=== PATIENT | male | born 1955 | race Caucasian/White ===

== ENCOUNTER 2020-03-07 08:34 | Outpatient (REF) | payer OTHER, SELFPAY | END 2020-03-07 08:35 | disposition home or self-care (01) | LOC: HO.LAB 08:34 | PROVIDERS: PCP Internal Medicine; Visit Provider Internal Medicine | DX: Z20.828 Contact with and (suspected) exposure to other viral communicable diseases (principal) | CPT/HCPCS: C9803; U0003 ==

== ENCOUNTER 2021-02-11 07:51 | Emergency (ER) | payer OTHER, SELFPAY ==
--- NOTE | ~2021-02-11 | XR_ITS ---
EXAMINATION: XR RIBS, RIGHT CLINICAL INFORMATION: Fall with right-sided chest pain COMPARISON: None TECHNIQUE: PA chest and 3 views of the right ribs FINDINGS: There are multiple old left-sided rib fractures. No pneumothorax or pleural effusion. No acute parenchymal disease. Heart normal size. No evidence of pulmonary edema. There is a sclerotic lesion seen about the right humeral neck without bony destruction. There is a nondisplaced fracture seen involving the anterolateral aspect of the right eighth rib. XR/XR ribs RT min 3V w CXR1V IMPRESSION: Nondisplaced acute fracture right eighth rib. No pneumothorax or pleural effusion.
[2021-02-11 07:52] VITALS: BP 194/65; PULSE 67; RESP 20; TEMP 36.7; O2SAT 100; BMI 28.7
--- NOTE | 2021-02-11 08:05 | ED.FALL ---
HPI - Fall General Chief Complaint: General Medical Stated Complaint: fall - rib pain Time Seen by Provider: 02/11/21 07:56 Source: patient Mode of arrival: ambulatory Limitations: no limitations History of Present Illness HPI Narrative: 66-year-old male who presents emergency department for evaluation of right chest wall injury from a fall. Patient states that he was at a supermarket on Tuesday (4 days prior to evaluation) when he slipped and fell. He states he landed on his right chest. He states that he was able to get up but shortly after the fall he developed right-sided chest pain. He states that the pain is been constant. He points to his right lateral chest wall when asked to localize the pain. The pain is a sharp pain which is worse with movement and worse with breathing. He states the pain is 9/10 at its worst. He did not take any pain medications for this pain. He states that he does have some mild shortness of breath and mild dyspnea on exertion. He states that he has a nonproductive cough. He denied fever, chills, nausea, vomiting, abdominal pain, neck pain, back pain or extremity pain. Related Data Allergies Allergy/AdvReac Type Severity Reaction Status Date / Time No Known Allergies Allergy Unverified 12/13/19 17:25 [No Known Allergies*] Review of Systems Review of Systems: Yes all other systems are reviewed and are negative [facility] Past Medical History [facility] Narrative: Past medical history: Hypertension, hyperlipidemia. Past surgical history: Patient has had orthopedic injuries with repair in the past. Social history: He denies tobacco use. The patient drinks 2-3 beers per day. Denies drug use. Medical History High cholesterol HTN (hypertension) Social History Social History Advance Directives: No Physical Exam Vital Signs: Vital Signs: Last Vital Signs Temp 98.3 F 02/11/21 08:39 Pulse 64 02/11/21 08:39 Resp 16 02/11/21 08:39 BP 168/69 H 02/11/21 08:39 Pulse Ox 95 02/11/21 08:39 Body Mass Index 28.7 Const: General: cooperative and no acute distress Orientation/consciousness: oriented to person and oriented to place Limitations: no limitations HENMT: Head: Yes normal to inspection, Yes normocephalic and Yes atraumatic Ears: external ears normal General nose exam: Normal external nose present Face and sinus: Yes normal facial exam Mouth: Normal oral and palatal mucosa present Throat: Yes posterior oropharynx normal Eyes: General: appearance normal, both eyes and all related structures Pupils: Equal, round and reactive pupils present Neck: Neck: Yes normal visual inspection, Yes no lymphadenopathy, Yes trachea midline and Yes supple Chest: Chest palpation & inspection: normal inspection of the chest and tenderness rib (Right lateral chest wall tenderness) Resp: Effort & Inspection: normal respiratory effort and able to speak in complete sentences Auscultation: clear to auscultation bilaterally Cardio: Rate: regular rate Rhythm: regular rhythm Heart sounds: S1 normal heart sound present, S2 normal heart sound present and no murmurs GI: Inspection: Yes normal to inspection Palpation (GI): Soft to palpation, nontender and no guarding Auscultation: normal bowel sounds : General: Yes no CVA tenderness Back/Spine/Pelvis: Back: no CVA tenderness Skin: General skin exam: no rashes or lesions noted Neuro: General: oriented to person and oriented to place Cranial nerves: Yes CN's II-XII intact bilaterally and Yes Equal, round and reactive pupils present Cognition (Neuro): normal cognition Motor exam (neuro): 5/5 motor strength present throughout Extrem: General: Yes normal to inspection Psych: Appearance: grossly normal Speech and movement: Normal speech and movement present Affect: normal affect Attitude: cooperative Thought process: Normal thought process present Thought content: Normal thought content present Course Course Course Narrative: 66-year-old male who presents emergency department for evaluation of right-sided chest pain which occurred after he fell 4 days prior. The patient's pain is constant, worse with breathing worse with movement. Vital signs revealed an elevated blood pressure of 194/65 otherwise unremarkable. Physical examination did reveal right lateral chest wall tenderness. Differential includes but is not limited to chest wall contusion, rib contusion, rib fracture, pneumonia, pneumothorax. Right-sided rib x-rays with one-view chest were ordered. Patient's pain was treated with ibuprofen 600 mg orally. 0953: The patient's chest x-ray revealed a nondisplaced acute fracture of the right 8th rib. I did review this with the patient. I created a rib belt using in 8 in Adams wrap. I wrapped this around the patient's chest to cover the right 8th rib. The patient felt significantly better after being wrapped with the Adams wrap. Patient was advised to take Tylenol ibuprofen for pain. He was given printed and verbal instructions and discharged home. Patient will need a work note for 1 week. Procedures Procedure Narrative Procedure Narrative: Adams wrap rib belt: The patient's chest was wrapped in his 6 in Adams wrap by me, the Adams wrap was placed over the 8th rib and secured with velcro. The patient did get relief of his pain with this rib belt. Discharge Plan Discharge Clinical Impression: Fall Qualifiers: Encounter type: initial encounter Qualified Code(s): W19.XXXA - Unspecified fall, initial encounter Closed rib fracture Qualifiers: Encounter type: initial encounter Rib fracture type: single rib Laterality: right Qualified Code(s): S22.31XA - Fracture of one rib, right side, initial encounter for closed fracture Patient Disposition: Home, Self-Care Instructions: Rib Fracture (ED) Additional Instructions: Your x-rays revealed that you have a nondisplaced fracture/broken bone of the right 8th rib. Wear the Adams wrap rib belt as needed for pain over the next 1-2 weeks. You can also buy a Velcro rib belt at any pharmacy. Take ibuprofen 200 mg pills, 3 pills every 6 hours as needed for pain. Take Tylenol (acetaminophen) 500 mg pills, 2 pills every 4 to 6 hours as needed for pain. Follow-up with your doctor in 2 days. Please return to the emergency department if your symptoms get worse or if you develop any symptoms that are concerning to you. Stand Alone Forms: Work/School Release
[2021-02-11 08:26] VITALS: BP 181/69; PULSE 71; RESP 18; TEMP 36.6; O2SAT 97; BMI 28.7
[2021-02-11 08:39] VITALS: BP 168/69; PULSE 64; RESP 16; TEMP 36.8; O2SAT 95
[2021-02-11] MEDS: Ibuprofen 600 MG TABLET PO (08:55)
== END 2021-02-11 10:04 | disposition home or self-care (01) ==
PROVIDERS: Emergency Provider Emergency Medicine Emergency Medical Services; PCP Internal Medicine
DX: S22.31XA Fracture of one rib, right side, initial encounter for closed fracture (principal); I10 Essential (primary) hypertension; W01.0XXA Fall on same level from slipping, tripping and stumbling without subsequent striking against object, initial encounter; Y93.9 Activity, unspecified; Y92.512 Supermarket, store or market as the place of occurrence of the external cause; Y99.9 Unspecified external cause status
CPT/HCPCS: 71101; 99283; 99284

== ENCOUNTER 2024-05-07 21:16 | Emergency (ER) | payer MEDICARE, SELFPAY ==
[2024-05-07 21:21] VITALS: BP 139/85; PULSE 76; RESP 16; TEMP 36.3; O2SAT 96; BMI 25.0
--- NOTE | 2024-05-07 21:23 | ECG_ITS ---
Test Reason : PALPITATIONS Blood Pressure : */* mmHG Vent. Rate : 70 BPM Atrial Rate : 70 BPM P-R Int : 136 ms QRS Dur : 88 ms QT Int : 356 ms P-R-T Axes : 44 -9 32 degrees QTcB Int : 384 ms Normal sinus rhythm Septal infarct , age undetermined Abnormal ECG No previous ECGs available Referred By: Generic ED Physician Electronically Signed By: ROBERT CHAVES MD
[2024-05-07 22:33] LABS: Imm Gran Abs Auto 0.01 X10*3/uL (0.00-0.03); Imm Gran Pct Auto 0.2 % (0.0-0.4); Mean Corpuscular HGB Conc 33.9 g/dl (31.0-36.0); Mean Corpuscular Hemoglobin 27.6 pg (27.0-33.0); PLT CLUMP 1; SCAN SMEAR FLAG 1
[2024-05-07 22:35] LABS: Basophils Percent Auto 0.7 % (0-2); Eosinophils Absolute Auto 0.2 X10*3/uL (0.0-0.4); Eosinophils Percent Auto 3.9 % (0-4); Hematocrit 49.3 % (42.0-52.0); Hemoglobin 16.7 g/dl (14.0-18.0); Lymphocytes Percent Auto 34.8 % (20-40); Mean Corpuscular Volume 81.4 fL (80.0-98.0); Mean Platelet Volume 11.3 fL (9.4-12.4); Monocytes Absolute Auto 0.8 X10*3/uL (0.1-1.2); Monocytes Percent Auto 13.6 % (2-11); Neutrophils Absolute Auto 2.8 x10*3/uL (2.0-8.3); Neutrophils Percent Auto 46.8 % (45-73); Red Blood Count 6.06 X10*6/uL (4.60-5.80); Red Cell Distribution Width 15.4 % (11.0-16.0)
[2024-05-07 22:47] LABS: Alanine Aminotransferase 63 U/L (0-40); Albumin Level 3.8 g/dL (3.5-5.0); Alkaline Phosphatase 268 U/L (39-117); Anion Gap 11 (12-20); Aspartate Amino Transferase 109 U/L (5-37); Bilirubin Total 1.6 mg/dL (0.0-1.0); Blood Urea Nitrogen 10 mg/dL (9-16); Calcium 9.8 mg/dL (8.4-10.2); Carbon Dioxide 23 mmol/L (22-29); Chloride 109 mmol/L (96-108); Creatinine Clr Calc Pharmacy 93.1; Estimated Glomerular Filt Rate > 60; Glucose Random 117 mg/dL (60-115); Potassium 4.1 mmol/L (3.3-5.1); Sodium 139 mmol/L (135-145); Total Protein 8.5 g/dL (6.5-8.0)
[2024-05-07 22:54] LABS: Troponin-I High Sensitivity < 2.7 ng/L (<3.5-35.0)
[2024-05-07 22:59] LABS: MANUAL DIFF FLAG NO; Platelet Count 108 X10*3/uL (160-400); White Blood Count 5.9 X10*3/uL (4.8-10.8)
--- OUTSIDE RECORDS SUMMARY | 2024-05-08 03:42 | XMS_ITS | Clinical Summary ---
Author Organization [address] Address [address] [place] [id number] Phone Care Team Providers Care Payroll Machine Operator Name Role Phone Alejo Allan MD Primary Care Provider [phone] Allergies No known active allergies Medications simvastatin (ZOCOR) 10 mg tablet Take 0.5 tablets (5 mg total) by mouth at bedtime. 12/05/2023 Active lisinopriL (PRINIVIL,ZESTR IL) 20 mg tablet Take 1 tablet (20 mg total) by mouth 1 (one) time each day. 12/05/2023 Active Active Problems Problem Noted Date Diagnosed Date Fatty liver disease, nonalcoholic 09/02/2021 Elevated ferritin level 03/17/2021 Benign prostatic hyperplasia without lower urinary tract symptoms 03/16/2018 Skin lesion 03/16/2018 Overview (03/04/2024): Lump on back cyst vs lipoma Cervical radiculitis 10/31/2017 Cervical spondylosis with radiculopathy 11/01/19 18 Hyperlipidemia 09/16/2016 Elevated LFTs 10/23/2015 Essential hypertension 02/10/2015 Immunizations Name Administration Dates Next Due Moderna SARS-CoV-2 COVID-19, mRNA, LNP-S, preservative free 04/12/2021,08/11/2020,07/13/2020 Pneumococcal conjugate 20 va lent (Prevnar 20, PCV 20) 2mo and older 04/28/2023 Tdap Tetanus diptheria acell ular pertussis (Boostrix; Adacel) 7yo and older 03/11/2016 Surgical History Surgery Date Site/Laterality Comments OTHER SURGICAL HISTORY 03/28/2000 PROCEDURE: MT OPEN TX HUMERAL SUPRACONDYLAR FRACTURE W/O XTN; COMMENT: plate and screws; fractured L humerus and both of legs COLONOSCOPY 12/26/2014 PROCEDURE: HISTORICAL COLONOSCOPY; COMMENT: Polyps x 3, diverticulosis Medical History Medical History Date Comments Essential hypertension 02/10/2015 DX:Essent ial hypertension Hyperlipemia 2020 DX:Hyperlipemia; COMMENT: Patient on a statin Elevated ferritin level 03/17/2021 DX:[place] carole ferritin level Family History Medical History Relation Name Comments Liver disease Brother No Known Problems Father Asthma Mother Diabetes Mother Stomach cancer Sister 1 Breast cancer Sister 2 Relation Name Status Comments Brother Father Mother Sister 1 Sister 2 Social History Tobacco Use Types Packs/Day Years Used Date Smoking Tobacco: Former Cigarettes 0.3 40.6 1 04/13/1971 - 09/17/2012 Smokeless Tobacco: Never Alcohol Use Standard Drinks/Week Comments Yes 0 (1 standard drink = 0.6 oz pur e alcohol) Sex and Gender Information Value Date Recorded Sex Assigned at Not on file Legal Sex Male 8:51 AM EST Gender Identity Not on file Sexual Orientation Not on file Obstetrics History Last Filed Vital Signs Vital Sign Reading Time Taken Comments Blood Pressure 134/68 12/05/2023 8:01 AM EDT Pulse 65 12/05/2023 8:01 AM EDT Temperature - - Respiratory Rate - - Oxygen Saturation - - Inhaled Oxygen Concentration - - Weight 73.5 kg (162 lb) 12/05/2023 8:01 AM EDT Height 165.1 cm (5' 5 ) 12/05/2023 8:01 AM EDT Body Mass Index 26.96 12/05/2023 8:01 AM EDT Plan of Treatment Upcoming Encounters Date Type Department Care Team (Late st Contact Info) Description 06/04/2024 3:45 PM EDT Office Visit Adult Medicine [address] [phone] Alejo Allan MD [address] [place] [address] [phone] Health Maintenance Due Date Last Done Comments Hepatitis A Vaccines (1 of 2 - Risk 2-dose series) 02/11/1975 Zoster Vaccines (1 of 2) 02/11/2006 Hepatitis B Vaccines (1 of 3 - Risk 3-dose series) 2016 RSV Immunization Patients 60 + Years Old (1 - Risk 60-74 years 1-dose series) 2016 Abdominal Aortic Aneurysm (AAA) Screen 03/06/2022 Falls Risk Assessment 03/06/2022 Social Influencers of Health Screening 03/06/2022 COVID-19 Vaccine (4 - 2023-2 5 season) 2023 04/12/2021, 08/11/2020, 07/13/2020 Influenza Vaccine (#1) 2023 Depression Screening 12/04/2024 12/05/2023 Hypertension/CHF/CAD Annual BMP Blood Test 12/04/2024 12/05/2023, 12/05/2023 Medicare Annual Wellness Visit 12/04/2024 12/05/2023 DTaP,Tdap,and Td Vaccines (2 - Td or Tdap) 03/11/2026 03/11/2016 Colorectal Cancer Screening: Colonoscopy 07/21/2026 07/21/2021 Cholesterol Screening (Lipid Panel) 12/04/2028 12/05/2023, 12/05/2023 Hepatitis C Screening Completed 02/27/2020 Pneumococcal Vaccine: 50+ Years Completed 04/28/2023 HIB Vaccines Aged Out No longer eligi ble based on patient's age to complete this topic HPV Vaccines Aged Out No longer eligi ble based on patient's age to complete this topic IPV Vaccines Aged Out No longer eligi ble based on patient's age to complete this topic MMR Vaccines Aged Out No longer eligi ble based on patient's age to complete this topic Meningococcal ACWY Vaccine Aged Out N o longer eligible based on patient's age to complete this topic RSV Immunization Patients Under 20 months Aged Out No longer eligible b ased on patient's age to complete this topic Varicella Vaccines Aged Out No longer eligible based on patient's age to complete this topic Procedures Procedure Name Priority Date/Time Associated Diagnosis Comments DEPRESSION SCREENING Routine 12/05/2023 ANNUAL BMP BLOOD TEST Routine 12/05/2023 LIPID PANEL Routine 12/05/2023 COLONOSCOPY Routine 07/21/2021 HEPATITIS C SCREENING Routine 02/27/2020 from Last 3 Months or Most Recently Relevant to Health Maintenance Results * Annual BMP Blood Test (12/05/2023) [facility] Annual BMP Blood Test abstracted [facility] Provider HEALTH MAINTENANCE Final Result * Depression Screening (12/05/2023) [facility] Depression Screening abstracted [facility] Provider HEALTH MAINTENANCE Final Result * (ABNORMAL) Lipid panel (12/05/2023) [facility] LDL/HDL Ratio 4 0 - 4 Triglycerides 128 0 - 150 mg/dL Cholesterol 244(A) 0 - 200 mg/dL HDL 70 >=40 mg/dL LDL Cholesterol 149(A) 0 - 100 mg/dL Blood Venous blood specimen / Unknown [facility] Provider LAB BLOOD ORDERABLES Mallory l Result * Colonoscopy (07/21/2021) [facility] Colonoscopy no interpretation , abstracted Anatomical Region Laterality Modality Other [facility] Provider HEALTH MAINTENANCE Final Result * Hepatitis C Screening (02/27/2020) [facility] Hepatitis C Screening abstracted [facility] Provider HEALTH MAINTENANCE Final Result from Last 3 Months or Most Recently Relevant to Health Maintenance Insurance MEDICARE Care Teams Payroll Machine Operator Relationship Specialty Start Date End Date Alejo Alaln MD PCP - General Internal Medicine 06/07/14
[2024-05-08 04:15] VITALS: BP 166/75; PULSE 75; RESP 18; TEMP 36.9; O2SAT 93
--- NOTE | 2024-05-08 04:34 | ED_ITS ---
HPI - Arrhythmia/Palpitations General Chief Complaint: Arrhythmia/Palpitations Stated Complaint: Heart racing Time Seen by Provider: 05/08/24 03:54 Source: patient Mode of arrival: ambulatory Limitations: no limitations History of Present Illness ED Provider: HPI narrative: Patient's history of hypertension on lisinopril 20 mg noticed earlier blood pressure of 189/70 felt anxious and had some palpitation for short time along with chest pain at around 15:00 lasted only for 3-4 minute patient has been having chest pain off and on for long time felt anxious in the ER patient's blood pressure improved to 159/87 no chest pain after arrival in the ER no palpitation noticed Related Data Previous Rx's ?Medication ?Instructions ?Recorded amlodipine 2.5 mg tablet 2.5 mg PO DAILY #30 tabs 05/08/24 Allergies Allergy/AdvReac Type Severity Reaction Status Date / Time No Known Allergies Allergy Verified 05/07/24 21:22 [No Known Allergies*] Review of Systems 2 Review of Systems: Yes all other systems are reviewed and are negative [facility] Past Medical History Medical History HTN (hypertension) High cholesterol Social History Social History Advance Directives: No Advance Directives Information Provided: Yes Do you have a plan to hurt others: No Plan Physical Exam 2 Vital Signs: Vital Signs: Last Vital Signs Temp 98.0 F 05/08/24 05:07 Pulse 68 05/08/24 05:07 Resp 18 05/08/24 05:07 BP 164/73 H 05/08/24 05:07 Pulse Ox 93 05/08/24 05:07 O2 Del Method Room Air 05/08/24 05:07 BMI result Body Mass Index 25.0 Appearance: Alert. Oriented X3. No acute distress. Eyes: PERRLA, No Nystagmus ENT: Pharynx normal. Oral Mucosa moist Neck: Normal inspection. Neck supple. CVS: Normal heart rate and rhythm. Pulses normal. Respiratory: No respiratory distress. Equal air entry bilateral, no wheezing/rales/rhonchi Abdomen: Soft and nontender. Bowel sounds are present, no mass palpable, no CVA tenderness Skin: Skin warm and dry. Normal skin color. Normal skin turgor. Extremities: No lower extremity edema. No calf tenderness Neuro: Oriented X 3. No motor deficit. Medications Administered Discontinued Medications Generic Name Dose Route Start Last Admin Trade Name Ru PRN Reason Stop Dose Admin Amlodipine Besylate 5 mg 05/08/24 04:53 05/08/24 05:04 Amlodipine Besylate 5 Mg Tablet PO 05/08/24 04:54 5 mg ONCE ONE Administration Protocol Medical Decision Making Medical Decision Making [facility] Narrative: Patient with chronic atypical chest pain with slightly elevated blood pressure on lisinopril for a while will add amlodipine 2.5 mg daily for blood pressure control cardiac enzymes negative for acute ischemia patient advised to follow with PCP Differential Diagnosis Differential Diagnoses: The differential diagnosis associated with the presentation includes ACS/anxiety/accelerated hypertension Lab Data [facility] Lab Attestation statement: I reviewed the patient's lab results. 05/07/24 22:26 05/07/24 22:26 Labs: Lab Results 05/07/24 Range/Units 22:26 WBC 5.9 (4.8-10.8) X10*3/uL RBC 6.06 H (4.60-5.80) X10*6/uL Hgb 16.7 (14.0-18.0) g/dl Hct 49.3 (42.0-52.0) % MCV 81.4 (80.0-98.0) fL MCH 27.6 (27.0-33.0) pg MCHC 33.9 (31.0-36.0) g/dl RDW 15.4 (11.0-16.0) % Plt Count 108 L (160-400) X10*3/uL MPV 11.3 (9.4-12.4) fL Immature Gran % (Auto) 0.2 (0.0-0.4) % Neut % (Auto) 46.8 (45-73) % Lymph % (Auto) 34.8 (20-40) % Osborne % (Auto) 13.6 H (2-11) % Eos % (Auto) 3.9 (0-4) % Baso % (Auto) 0.7 (0-2) % Lymph # (Auto) 2.0 (1.2-4.9) X10*3/uL Osborne # (Auto) 0.8 (0.1-1.2) X10*3/uL Eos # (Auto) 0.2 (0.0-0.4) X10*3/uL Baso # (Auto) 0.0 (0.0-0.2) X10*3/uL Abs Immat Gran (auto) 0.01 (0.00-0.03) X10*3/uL Absolute Neuts (auto) 2.8 (2.0-8.3) x10*3/uL Absolute Nucleated RBC 0.000 (0.0-0.012) X10*3/uL Nucleated RBC % (auto) 0.0 (0.0-0.2) /100WBC Sodium 139 (135-145) mmol/L Potassium 4.1 (3.3-5.1) mmol/L Chloride 109 H (96-108) mmol/L Carbon Dioxide 23 (22-29) mmol/L Anion Gap 11 L (12-20) BUN 10 (9-16) mg/dL Creatinine 0.66 (0.5-1.4) mg/dL Estim Creat Clear Calc 93.1 Estimated GFR > 60 Random Glucose 117 H (60-115) mg/dL Calcium 9.8 (8.4-10.2) mg/dL Total Bilirubin 1.6 H (0.0-1.0) mg/dL AST 109 H (5-37) U/L ALT 63 H (0-40) U/L Alkaline Phosphatase 268 H (39-117) U/L Troponin I High Sens < 2.7 (<3.5-35.0) ng/L Total Protein 8.5 H (6.5-8.0) g/dL Albumin 3.8 (3.5-5.0) g/dL Independent Interpretation I performed an independent interpretation of an: EKG Interpretation: Normal sinus rhythm heart rate 70 beats per minute normal interval normal axis no acute ST-T just poor progression of R-waves in anterior leads no acute ischemia Discharge Plan Discharge Clinical Impression: Essential (primary) hypertension, Elevated liver function tests Patient Disposition: Home, Self-Care Instructions: Chronic Hypertension (ED) Additional Instructions: You have elevated liver enzymes likely from chronic liver disease Follow up with your PCP for further evaluation No blood pressure still slightly elevated Decrease salt intake Start taking amlodipine 2.5 mg daily Your normal blood pressure should be less than 135/85 Prescriptions: New amlodipine 2.5 mg tablet 2.5 mg PO DAILY Qty: 30 0RF Interventions: ED Discharge Assessment Last Done: 05/08/24 05:07 Discharge Date/Time: 05/08/24 05:18 Print Language: Frisian
[2024-05-08 05:03] VITALS: BP 164/73; PULSE 68; RESP 18; TEMP 36.7; O2SAT 93
[2024-05-08] MEDS: amLODIPine Besylate 5 MG TABLET PO (05:04)
[2024-05-08 05:07] VITALS: BP 164/73; PULSE 68; RESP 18; TEMP 36.7; O2SAT 93
== END 2024-05-08 05:18 | disposition home or self-care (01) ==
PROVIDERS: Emergency Provider Internal Medicine; PCP Internal Medicine
DX: I49.9 Cardiac arrhythmia, unspecified (principal); I10 Essential (primary) hypertension; R07.89 Other chest pain; F41.9 Anxiety disorder, unspecified; R79.89 Other specified abnormal findings of blood chemistry; R00.2 Palpitations; R94.31 Abnormal electrocardiogram [ECG] [EKG]; Z79.899 Other long term (current) drug therapy
CPT/HCPCS: 36415; 80053; 84484; 85025; 93005; 99283; 99284

== ENCOUNTER → 2024-05-07 21:23 | Outpatient (BNV) | payer MEDICARE, SELFPAY | PROVIDERS: Emergency Provider Internal Medicine; PCP Internal Medicine; Visit Provider Internal Medicine Cardiovascular Disease | DX: R94.31 Abnormal electrocardiogram [ECG] [EKG] (principal); R00.2 Palpitations | CPT/HCPCS: 93010 ==